=== PATIENT | male | born 1940 | race Caucasian/White ===

== ENCOUNTER 2018-07-02 03:04 | Inpatient (IN) | payer MEDICARE, OTHER ==
[2018-07-02] MEDS ORDERED: NITROGLYCERIN 50 MG/D5W (PMX) 250 ML (03:09)
[2018-07-02] MEDS ORDERED: FUROSEMIDE 40 MG INJ (03:15)
[2018-07-02] MEDS: FUROSEMIDE 40 MG INJ IV (03:44)
[2018-07-02] MEDS: NITROGLYCERIN 50 MG/D5W (PMX) 250 ML IV (03:44)
[2018-07-02 03:49] LABS: ADD MAN DIFF? NO
[2018-07-02 04:01] LABS: ALANINE AMINOTRANSFERASE 7 IU/L (13-69); ALBUMIN 4.4 g/dl (3.3-4.9); ALKALINE PHOSPHATASE 91 IU/L (42-121); ANION GAP 21 (5-13); ASPARTATE AMINO TRANSFERASE 35 IU/L (15-46); BILIRUBIN,INDIRECT 0.4 mg/dl (0-1.1); BILIRUBIN,TOTAL 0.4 mg/dl (0.2-1.3); BLOOD UREA NITROGEN 56 mg/dl (7-20); CALCIUM 9.5 mg/dl (8.4-10.2); CARBON DIOXIDE 16 mmol/L (21-31); CHLORIDE 105 mmol/L (97-110); CREATININE 6.25 mg/dl (0.61-1.24); LIPASE 174 U/L (23-300); POTASSIUM 4.8 mmol/L (3.5-5.1); SODIUM 142 mmol/L (135-144); TOTAL PROTEIN 8.4 g/dl (6.1-8.1)
[2018-07-02 04:11] LABS: WHITE BLOOD COUNT 21.6 10^3/ul (4.8-10.8)
[2018-07-02 04:11] LABS: ABNORMAL IP MESSAGE 1; BASOPHIL # 0.1 10^3/ul (0.0-0.1); BASOPHILS % 0.6 % (0.0-2.0); EOSINOPHILS # 0.8 10^3/ul (0.0-0.5); EOSINOPHILS % 3.9 % (0.0-7.0); HEMATOCRIT 40.4 % (42.0-52.0); HEMOGLOBIN 12.3 g/dl (14.0-18.0); LYMPHOCYTES # 7.6 10^3/ul (0.8-2.9); LYMPHOCYTES % 35.3 % (15.0-51.0); MEAN CORPUSCULAR HEMOGLOBIN 29.4 pg (29.0-33.0); MEAN CORPUSCULAR HGB CONC 30.4 g/dl (32.0-37.0); MEAN CORPUSCULAR VOLUME 96.4 fl (82.0-101.0); MEAN PLATELET VOLUME 10.6 fl (7.4-10.4); MONOCYTE # 0.9 10^3/ul (0.3-0.9); NEUTROPHIL # 11.9 10^3/ul (1.6-7.5); NEUTROPHILS % 55.4 % (39.0-77.0); PLATELET COUNT 456 10^3/UL (140-415); POSITIVE DIFF @See below; RED BLOOD COUNT 4.19 10^6/ul (4.70-6.10); RED CELL DISTRIBUTION WIDTH 14.3 % (11.5-14.5)
[2018-07-02 04:13] LABS: B-TYPE NATRIURETIC PEPTIDE 23200 PG/ML (0-450)
[2018-07-02 04:15] LABS: GLUCOSE 419 mg/dl (70-220)
[2018-07-02 04:21] LABS: TROPONIN-I 0.201 ng/ml (0.000-0.120)
[2018-07-02 04:36] LABS: Allen Test ACCEPTAB; Arterial Base Excess -6.4 mmol/L (-3.0-3); Arterial Blood Gas Oxygen Sat 99.3 mmHG (95.0-100.0); Arterial COHb 0 % (0.0-3.0); Arterial Fraction of Oxyhgb 98.9 % (93.0-99.0); Arterial HCO3 18.7 mmol/L (22.0-26.0); Arterial MetHb 0.4 % (0.0-1.5); Arterial pCO2 36.1 mmhg (35-45); Blood Gas IEPAP 15/5; MODE MASK - BIPAP; Site Right Radial
[2018-07-02 04:45] LABS: INR 0.96; PROTIME 12.9 Sec (11.9-14.9)
[2018-07-02 04:46] LABS: PARTIAL THROMBOPLASTIN TIME 24.3 Sec (23.0-35.0)
[2018-07-02] MEDS ORDERED: DEXTROSE 50% 50 ML SYRINGE IV ×2 (05:00)
[2018-07-02] MEDS ORDERED: LEVALBUTEROL (NEB) 1.25 MG/0.5 ML AMP HHN (05:00)
[2018-07-02] MEDS ORDERED: NITROGLYCERIN (SL) 0.4 MG TAB SL (05:00)
[2018-07-02] MEDS ORDERED: IPRATROPIUM (HFA) 12.9 GM INHALER INH (05:00)
[2018-07-02 05:45] LABS: BASOPHIL #M 0.2 10^3/ul (0.0-0.0); BASOPHILS % (M) 1 % (0-2); EOSINOPHILS % (M) 3 % (0-7); LYMPHOCYTES #M 4.9 10^3/ul (0.8-2.9); LYMPHOCYTES % (M) 23 % (15-51); MONOCYTE #M 0.8 10^3/ul (0.3-0.9); MONOCYTES % (M) 4 % (0-11); PLATELET ESTIMATE NORMAL; POIKILOCYTOSIS 2+ (0-0); POLYCHROMASIA 1+ (0-0); SEGMENTED NEUTROPHILS (M) % 69 % (39-77); SMUDGE%M 4 % (0-0)
[2018-07-02] MEDS: NA BICARBONATE 8.4% 50 ML SYG IV (05:59)
[2018-07-02] MEDS ORDERED: PANTOPRAZOLE 40 MG INJ IV (06:00)
[2018-07-02] MEDS: INSULIN HUMAN REGULAR 100 UNIT in SOD CHLORIDE 0.9% 99 ML IV (06:01)
[2018-07-02 06:07] LABS: CREATINE KINASE 60 IU/L (23-200)
[2018-07-02 06:19] LABS: CK INDEX 5.7
[2018-07-02 06:31] LABS: CK-MB 3.43 ng/ml (0.0-2.4); TROPONIN-I 0.507 ng/ml (0.000-0.120)
[2018-07-02] MEDS: ACCU-CHEK XX ×11 (07:30→23:35)
[2018-07-02 08:31] LABS: ADD MAN DIFF? NO
[2018-07-02 08:34] LABS: BASOPHILS % 0.2 % (0.0-2.0); EOSINOPHILS % 0.2 % (0.0-7.0); HEMATOCRIT 37.3 % (42.0-52.0); HEMOGLOBIN 11.8 g/dl (14.0-18.0); LYMPHOCYTES # 1.2 10^3/ul (0.8-2.9); MEAN CORPUSCULAR HEMOGLOBIN 29.3 pg (29.0-33.0); MEAN CORPUSCULAR HGB CONC 31.6 g/dl (32.0-37.0); MEAN CORPUSCULAR VOLUME 92.6 fl (82.0-101.0); MEAN PLATELET VOLUME 10.3 fl (7.4-10.4); MONOCYTE # 0.9 10^3/ul (0.3-0.9); MONOCYTES % 5.5 % (0.0-11.0); NEUTROPHIL # 14.2 10^3/ul (1.6-7.5); NEUTROPHILS % 86.4 % (39.0-77.0); PLATELET COUNT 280 10^3/UL (140-415); RED BLOOD COUNT 4.03 10^6/ul (4.70-6.10); RED CELL DISTRIBUTION WIDTH 13.9 % (11.5-14.5)
[2018-07-02 08:34] LABS: WHITE BLOOD COUNT 16.5 10^3/ul (4.8-10.8)
[2018-07-02 08:51] LABS: INR 0.94; PROTIME 12.7 Sec (11.9-14.9)
[2018-07-02 08:52] LABS: ALANINE AMINOTRANSFERASE 10 IU/L (13-69); ALBUMIN 4.3 g/dl (3.3-4.9); ALBUMIN/GLOBULIN RATIO 1.26; ALKALINE PHOSPHATASE 85 IU/L (42-121); ANION GAP 16 (5-13); ASPARTATE AMINO TRANSFERASE 28 IU/L (15-46); BILIRUBIN,INDIRECT 0.4 mg/dl (0-1.1); BILIRUBIN,TOTAL 0.4 mg/dl (0.2-1.3); BLOOD UREA NITROGEN 61 mg/dl (7-20); CALCIUM 9.8 mg/dl (8.4-10.2); CARBON DIOXIDE 26 mmol/L (21-31); CHLORIDE 101 mmol/L (97-110); CREATININE 6.87 mg/dl (0.61-1.24); GLUCOSE 277 mg/dl (70-220); POTASSIUM 4.4 mmol/L (3.5-5.1); SODIUM 143 mmol/L (135-144); TOTAL PROTEIN 7.7 g/dl (6.1-8.1)
[2018-07-02 08:53] LABS: PARTIAL THROMBOPLASTIN TIME 28.5 Sec (23.0-35.0)
[2018-07-02] MEDS: FAMOTIDINE 20 MG INJ IV (11:36)
[2018-07-02 11:38] LABS: CREATINE KINASE 95 IU/L (23-200)
[2018-07-02 11:43] LABS: LACTIC ACID 3.6 mmol/L (0.5-2.0)
[2018-07-02] MEDS: HEPARIN 1000 UNITS/ML 10 ML INJ IV (11:46)
[2018-07-02 11:49] LABS: CK INDEX 7.9
[2018-07-02] MEDS: HEPARIN 25000 UNITS/250 ML 250 ML IV (11:57)
[2018-07-02 12:59] LABS: ALANINE AMINOTRANSFERASE 18 IU/L (13-69); ALBUMIN/GLOBULIN RATIO 1.08; ALKALINE PHOSPHATASE 89 IU/L (42-121); ANION GAP 13 (5-13); ASPARTATE AMINO TRANSFERASE 29 IU/L (15-46); BILIRUBIN,INDIRECT 0.4 mg/dl (0-1.1); BILIRUBIN,TOTAL 0.4 mg/dl (0.2-1.3); BLOOD UREA NITROGEN 62 mg/dl (7-20); CALCIUM 9.9 mg/dl (8.4-10.2); CARBON DIOXIDE 27 mmol/L (21-31); CHLORIDE 103 mmol/L (97-110); CREATININE 7.11 mg/dl (0.61-1.24); GLUCOSE 138 mg/dl (70-220); POTASSIUM 4.5 mmol/L (3.5-5.1); SODIUM 143 mmol/L (135-144); TOTAL PROTEIN 7.7 g/dl (6.1-8.1)
[2018-07-02 13:13] LABS: HAAIG REFLEX REFLEX FILED
[2018-07-02 13:35] LABS: PROCALCITONIN 4.46 ng/mL (0.00-0.10)
[2018-07-02 14:06] LABS: HEPATITIS B SURFACE ANTIGEN NEGATIVE (NEGATIVE)
[2018-07-02 14:24] LABS: HEPATITIS B CORE ANTIBODY NEGATIVE (NEGATIVE)
[2018-07-02 15:38] LABS: HEPATITIS C VIRAL ANTIBODY NEGATIVE (NEGATIVE)
[2018-07-02] MEDS: morphine 2 MG INJ IV ×2 (17:05→21:06)
[2018-07-02 17:18] LABS: CREATINE KINASE 102 IU/L (23-200)
[2018-07-02 17:21] LABS: ALANINE AMINOTRANSFERASE 10 IU/L (13-69); ALBUMIN 4.1 g/dl (3.3-4.9); ALBUMIN/GLOBULIN RATIO 1.24; ALKALINE PHOSPHATASE 87 IU/L (42-121); ANION GAP 13 (5-13); ASPARTATE AMINO TRANSFERASE 32 IU/L (15-46); BILIRUBIN,INDIRECT 0.5 mg/dl (0-1.1); BILIRUBIN,TOTAL 0.5 mg/dl (0.2-1.3); BLOOD UREA NITROGEN 63 mg/dl (7-20); CALCIUM 9.7 mg/dl (8.4-10.2); CARBON DIOXIDE 27 mmol/L (21-31); CHLORIDE 102 mmol/L (97-110); CREATININE 7.21 mg/dl (0.61-1.24); GLUCOSE 136 mg/dl (70-220); POTASSIUM 4.2 mmol/L (3.5-5.1); SODIUM 142 mmol/L (135-144); TOTAL PROTEIN 7.4 g/dl (6.1-8.1)
[2018-07-02 17:33] LABS: CK INDEX 6.4; CK-MB 6.52 ng/ml (0.0-2.4)
[2018-07-02 18:54] LABS: PARTIAL THROMBOPLASTIN TIME 61.4 Sec (23.0-35.0)
[2018-07-02] MEDS: TAMSULOSIN (SR) 0.4 MG CAP PO (22:14)
[2018-07-02] MEDS: ASPIRIN (EC) 81 MG TAB PO (22:15)
[2018-07-02] MEDS: CLOPIDOGREL 75 MG TAB PO (22:17)
[2018-07-03] MEDS: ACCU-CHEK XX ×24 (00:27→23:00)
[2018-07-03] MEDS ORDERED: ZOLPIDEM 5 MG TAB (01:10)
[2018-07-03] MEDS: ZOLPIDEM 5 MG TAB PO ×2 (01:12→03:58)
[2018-07-03 01:29] LABS: PARTIAL THROMBOPLASTIN TIME 58.3 Sec (23.0-35.0)
[2018-07-03 05:24] LABS: ADD MAN DIFF? NO
[2018-07-03 05:27] LABS: BASOPHILS % 0.3 % (0.0-2.0); EOSINOPHILS # 0.1 10^3/ul (0.0-0.5); EOSINOPHILS % 1.1 % (0.0-7.0); HEMATOCRIT 35.4 % (42.0-52.0); HEMOGLOBIN 11.4 g/dl (14.0-18.0); LYMPHOCYTES # 1.3 10^3/ul (0.8-2.9); LYMPHOCYTES % 11.2 % (15.0-51.0); MEAN CORPUSCULAR HEMOGLOBIN 29.2 pg (29.0-33.0); MEAN CORPUSCULAR HGB CONC 32.2 g/dl (32.0-37.0); MEAN CORPUSCULAR VOLUME 90.5 fl (82.0-101.0); MEAN PLATELET VOLUME 10.2 fl (7.4-10.4); MONOCYTE # 0.9 10^3/ul (0.3-0.9); MONOCYTES % 7.4 % (0.0-11.0); NEUTROPHIL # 9.5 10^3/ul (1.6-7.5); NEUTROPHILS % 79.7 % (39.0-77.0); PLATELET COUNT 292 10^3/UL (140-415); RED BLOOD COUNT 3.91 10^6/ul (4.70-6.10); RED CELL DISTRIBUTION WIDTH 14.3 % (11.5-14.5)
[2018-07-03 05:27] LABS: WHITE BLOOD COUNT 11.9 10^3/ul (4.8-10.8)
[2018-07-03 05:57] LABS: CREATINE KINASE 175 IU/L (23-200)
[2018-07-03 06:06] LABS: ALANINE AMINOTRANSFERASE 20 IU/L (13-69); ALBUMIN/GLOBULIN RATIO 1.29; ALKALINE PHOSPHATASE 85 IU/L (42-121); ANION GAP 12 (5-13); ASPARTATE AMINO TRANSFERASE 46 IU/L (15-46); BILIRUBIN,INDIRECT 0.5 mg/dl (0-1.1); BILIRUBIN,TOTAL 0.5 mg/dl (0.2-1.3); BLOOD UREA NITROGEN 39 mg/dl (7-20); CALCIUM 9.7 mg/dl (8.4-10.2); CARBON DIOXIDE 30 mmol/L (21-31); CHLORIDE 98 mmol/L (97-110); CHOL/HDL RATIO 2.8 RATIO; CHOLESTEROL 177 mg/dl (100-200); CK INDEX 8.4; CREATININE 5.12 mg/dl (0.61-1.24); GLUCOSE 121 mg/dl (70-220); HDL CHOLESTEROL 63 mg/dl (31-75); LDL CHOLESTEROL,CALCULATED 95 mg/dl; MAGNESIUM 2.1 mg/dl (1.7-2.5); POTASSIUM 4.3 mmol/L (3.5-5.1); SODIUM 140 mmol/L (135-144); TOTAL PROTEIN 7.1 g/dl (6.1-8.1); TRIGLYCERIDES 95 mg/dl (0-149)
[2018-07-03 06:07] LABS: PARTIAL THROMBOPLASTIN TIME 44.7 Sec (23.0-35.0)
[2018-07-03 06:08] LABS: INR 0.96; PROTIME 12.9 Sec (11.9-14.9)
[2018-07-03 06:20] LABS: FREE T4 (FREE THYROXINE) 1.66 ng/dl (0.78-2.44)
[2018-07-03] MEDS: HEPARIN 1000 UNITS/ML 10 ML INJ IV (06:25)
[2018-07-03 07:41] LABS: AADO2 Arterial 89.1 mmHg (7.0-24.0); Arterial Base Excess 5.1 mmol/L (-3.0-3); Arterial Blood Gas Oxygen Sat 96.4 mmHG (95.0-100.0); Arterial COHb 0.3 % (0.0-3.0); Arterial HCO3 27.9 mmol/L (22.0-26.0); Arterial MetHb 0.1 % (0.0-1.5); Arterial pCO2 34.7 mmhg (35-45); MODE NASAL CANNULA; Site Right Brachial
[2018-07-03] MEDS: MAGNESIUM OXIDE 400 MG TAB PO (09:04)
[2018-07-03] MEDS: FAMOTIDINE 20 MG INJ IV (09:04)
[2018-07-03] MEDS: ASPIRIN (EC) 81 MG TAB PO (09:04)
[2018-07-03] MEDS: CALCITRIOL 0.25 MCG CAP PO (09:04)
[2018-07-03 10:35] LABS: ADD UMIC YES; UR ASCORBIC ACID NEGATIVE (NEGATIVE); UR BILIRUBIN (Dip) NEGATIVE (NEGATIVE); UR BLOOD (Dip) 3+ mg/dL (NEGATIVE); UR CLARITY CLOUDY (CLEAR); UR COLOR YELLOW (YELLOW); UR GLUCOSE (Dip) NEGATIVE (NEGATIVE); UR KETONES (Dip) TRACE mg/dL (NEGATIVE); UR LEUKOCYTE ESTERASE (Dip) TRACE Leu/ul (NEGATIVE); UR NITRITE (Dip) NEGATIVE (NEGATIVE); UR RBC 173 /HPF (0-5); UR SPECIFIC GRAVITY (Dip) 1.014 (1.003-1.030); UR TOTAL PROTEIN (Dip) 3+ mg/dl (NEGATIVE); UR UROBILINOGEN (Dip) NEGATIVE (NEGATIVE); UR WBC 11 /HPF (0-5)
[2018-07-03] MEDS: ACETAMINOPHEN 650MG/20.3ML CUP PO ×2 (10:41→20:00)
[2018-07-03] MEDS ORDERED: FENTAnyl 50 MCG/ML VIAL (15:22)
[2018-07-03] MEDS ORDERED: MIDAZOLAM 1 MG/ML 2 ML INJ (15:22)
[2018-07-03] MEDS ORDERED: BIVALIRUDIN 250MG /NS 50 ML 50 ML IVPB (15:46)
[2018-07-03] MEDS ORDERED: IODIXANOL LOCM 100 ML BTL (15:46)
[2018-07-03] MEDS ORDERED: VERAPAMIL 5 MG INJ (15:46)
[2018-07-03] MEDS ORDERED: IOHEXOL 350MG/ML 50 ML BTL (15:46)
[2018-07-03] MEDS ORDERED: CLOPIDOGREL 300 MG TAB (16:19)
[2018-07-03] MEDS ORDERED: NITROGLYCERIN (IC) 100 MCG/ML INJ (16:19)
[2018-07-03] MEDS: SOD CHLORIDE 0.9% 1,000 ML IV (18:00)
[2018-07-03] MEDS: morphine 2 MG INJ IV (18:02)
[2018-07-03] MEDS: TAMSULOSIN (SR) 0.4 MG CAP PO (21:06)
[2018-07-04] MEDS: ACCU-CHEK XX ×6 (01:00→04:40)
[2018-07-04] MEDS: INSULIN GLARGINE [LANTus] (100 UNITS/ML) SYG SC (03:58)
[2018-07-04] MEDS ORDERED: GLUCOSE GEL 15 GRAM TUBE PO ×2 (05:00)
[2018-07-04] MEDS ORDERED: GLUCAGON 1 MG INJ IM (05:00)
[2018-07-04] MEDS ORDERED: DEXTROSE 50% 50 ML SYRINGE IV ×2 (05:00)
[2018-07-04] MEDS ORDERED: GLUCOSE GEL 15 GRAM TUBE BUCCAL (05:00)
[2018-07-04 05:15] LABS: ADD MAN DIFF? NO
[2018-07-04 05:21] LABS: WHITE BLOOD COUNT 15.1 10^3/ul (4.8-10.8)
[2018-07-04 05:21] LABS: BASOPHIL # 0.1 10^3/ul (0.0-0.1); BASOPHILS % 0.4 % (0.0-2.0); EOSINOPHILS # 0.1 10^3/ul (0.0-0.5); EOSINOPHILS % 0.4 % (0.0-7.0); HEMATOCRIT 33.4 % (42.0-52.0); HEMOGLOBIN 10.5 g/dl (14.0-18.0); LYMPHOCYTES # 1.1 10^3/ul (0.8-2.9); LYMPHOCYTES % 7.4 % (15.0-51.0); MEAN CORPUSCULAR HEMOGLOBIN 29.2 pg (29.0-33.0); MEAN CORPUSCULAR HGB CONC 31.4 g/dl (32.0-37.0); MEAN CORPUSCULAR VOLUME 92.8 fl (82.0-101.0); MEAN PLATELET VOLUME 10.8 fl (7.4-10.4); MONOCYTE # 1.4 10^3/ul (0.3-0.9); MONOCYTES % 9.4 % (0.0-11.0); NEUTROPHIL # 12.4 10^3/ul (1.6-7.5); NEUTROPHILS % 81.9 % (39.0-77.0); PLATELET COUNT 258 10^3/UL (140-415); RED CELL DISTRIBUTION WIDTH 14.3 % (11.5-14.5)
[2018-07-04] MEDS: ACETAMINOPHEN 650MG/20.3ML CUP PO (05:46)
[2018-07-04 06:07] LABS: ANION GAP 16 (5-13); BLOOD UREA NITROGEN 55 mg/dl (7-20); CALCIUM 9.6 mg/dl (8.4-10.2); CARBON DIOXIDE 25 mmol/L (21-31); CHLORIDE 98 mmol/L (97-110); CREATININE 6.82 mg/dl (0.61-1.24); GLUCOSE 147 mg/dl (70-220); MAGNESIUM 2.2 mg/dl (1.7-2.5); PHOSPHORUS 8.9 mg/dl (2.5-4.9); POTASSIUM 4.8 mmol/L (3.5-5.1); SODIUM 139 mmol/L (135-144)
[2018-07-04] MEDS: INSULIN ASPART [NOVOLOG] 3 ML PEN SC ×7 (08:11→20:19)
[2018-07-04] MEDS: ASPIRIN (EC) 81 MG TAB PO (08:17)
[2018-07-04] MEDS: CLOPIDOGREL 75 MG TAB PO (08:17)
[2018-07-04] MEDS: MAGNESIUM OXIDE 400 MG TAB PO (08:17)
[2018-07-04] MEDS: CALCITRIOL 0.25 MCG CAP PO (08:18)
[2018-07-04] MEDS: MULTIVIT/CA CARB/B CMPLX/FA TAB PO (08:18)
[2018-07-04] MEDS: FAMOTIDINE 20 MG INJ IV (08:24)
[2018-07-04] MEDS: CEFEPIME 1GM/50 ML (PMX) 50 ML IVPB (10:38)
[2018-07-04] MEDS: SEVELAMER CARBONATE 800 MG TABLET PO ×3 (11:51→17:09)
[2018-07-04] MEDS: HYDROCODONE/APAP (5/325) TAB PO ×2 (12:19→16:41)
[2018-07-04] MEDS: DOCUSATE SODIUM 100 MG CAP PO (20:24)
[2018-07-04] MEDS: TAMSULOSIN (SR) 0.4 MG CAP PO (20:24)
[2018-07-05] MEDS: morphine 2 MG INJ IV (03:04)
[2018-07-05 05:50] LABS: ADD MAN DIFF? NO
[2018-07-05 05:53] LABS: WHITE BLOOD COUNT 13.5 10^3/ul (4.8-10.8)
[2018-07-05 05:53] LABS: BASOPHIL # 0.1 10^3/ul (0.0-0.1); BASOPHILS % 0.4 % (0.0-2.0); EOSINOPHILS % 0.2 % (0.0-7.0); HEMATOCRIT 32.2 % (42.0-52.0); HEMOGLOBIN 10.4 g/dl (14.0-18.0); LYMPHOCYTES # 1.1 10^3/ul (0.8-2.9); LYMPHOCYTES % 8.4 % (15.0-51.0); MEAN CORPUSCULAR HEMOGLOBIN 29.5 pg (29.0-33.0); MEAN CORPUSCULAR HGB CONC 32.3 g/dl (32.0-37.0); MEAN CORPUSCULAR VOLUME 91.2 fl (82.0-101.0); MEAN PLATELET VOLUME 10.5 fl (7.4-10.4); MONOCYTES % 7.7 % (0.0-11.0); NEUTROPHIL # 11.2 10^3/ul (1.6-7.5); NEUTROPHILS % 82.9 % (39.0-77.0); PLATELET COUNT 239 10^3/UL (140-415); RED BLOOD COUNT 3.53 10^6/ul (4.70-6.10); RED CELL DISTRIBUTION WIDTH 14.4 % (11.5-14.5)
[2018-07-05 06:13] LABS: CREATINE KINASE 53 IU/L (23-200)
[2018-07-05 06:17] LABS: ALANINE AMINOTRANSFERASE 9 IU/L (13-69); ALBUMIN 3.9 g/dl (3.3-4.9); ALBUMIN/GLOBULIN RATIO 1.08; ALKALINE PHOSPHATASE 94 IU/L (42-121); ANION GAP 13 (5-13); ASPARTATE AMINO TRANSFERASE 24 IU/L (15-46); BILIRUBIN,INDIRECT 0.4 mg/dl (0-1.1); BILIRUBIN,TOTAL 0.4 mg/dl (0.2-1.3); BLOOD UREA NITROGEN 37 mg/dl (7-20); CALCIUM 9.2 mg/dl (8.4-10.2); CARBON DIOXIDE 28 mmol/L (21-31); CHLORIDE 98 mmol/L (97-110); CREATININE 5.59 mg/dl (0.61-1.24); GLUCOSE 186 mg/dl (70-220); MAGNESIUM 2.2 mg/dl (1.7-2.5); POTASSIUM 4.4 mmol/L (3.5-5.1); SODIUM 139 mmol/L (135-144); TOTAL PROTEIN 7.5 g/dl (6.1-8.1)
[2018-07-05 06:25] LABS: CK INDEX 3.5; CK-MB 1.84 ng/ml (0.0-2.4)
[2018-07-05] MEDS: INSULIN ASPART [NOVOLOG] 3 ML PEN SC ×7 (07:56→20:51)
[2018-07-05] MEDS: CALCITRIOL 0.25 MCG CAP PO (08:36)
[2018-07-05] MEDS: ASPIRIN (EC) 81 MG TAB PO (08:36)
[2018-07-05] MEDS: MULTIVIT/CA CARB/B CMPLX/FA TAB PO (08:36)
[2018-07-05] MEDS: MAGNESIUM OXIDE 400 MG TAB PO (08:36)
[2018-07-05] MEDS: FAMOTIDINE 20 MG TAB PO (08:36)
[2018-07-05] MEDS: SEVELAMER CARBONATE 800 MG TABLET PO ×3 (08:36→17:25)
[2018-07-05] MEDS: CLOPIDOGREL 75 MG TAB PO (08:36)
[2018-07-05] MEDS: LOSARTAN 25 MG TAB PO (08:37)
[2018-07-05] MEDS: INSULIN GLARGINE [LANTus] (100 UNITS/ML) SYG SC (08:38)
[2018-07-05] MEDS: CEFEPIME 1GM/50 ML (PMX) 50 ML IVPB (08:38)
[2018-07-05] MEDS: NYSTATIN 30 GM POWDER BTL TOP ×2 (15:33→20:51)
[2018-07-05] MEDS: TAMSULOSIN (SR) 0.4 MG CAP PO (20:45)
[2018-07-05] MEDS: ZOLPIDEM 5 MG TAB PO (21:01)
[2018-07-06 06:53] LABS: ADD MAN DIFF? NO
[2018-07-06 06:55] LABS: BASOPHILS % 0.3 % (0.0-2.0); EOSINOPHILS # 0.1 10^3/ul (0.0-0.5); EOSINOPHILS % 1.2 % (0.0-7.0); HEMATOCRIT 30.7 % (42.0-52.0); HEMOGLOBIN 9.8 g/dl (14.0-18.0); LYMPHOCYTES # 1.2 10^3/ul (0.8-2.9); LYMPHOCYTES % 10.4 % (15.0-51.0); MEAN CORPUSCULAR HGB CONC 31.9 g/dl (32.0-37.0); MEAN CORPUSCULAR VOLUME 90.8 fl (82.0-101.0); MEAN PLATELET VOLUME 10.6 fl (7.4-10.4); MONOCYTES % 8.6 % (0.0-11.0); NEUTROPHIL # 9.2 10^3/ul (1.6-7.5); NEUTROPHILS % 79.2 % (39.0-77.0); PLATELET COUNT 263 10^3/UL (140-415); RED BLOOD COUNT 3.38 10^6/ul (4.70-6.10)
[2018-07-06 06:55] LABS: WHITE BLOOD COUNT 11.6 10^3/ul (4.8-10.8)
[2018-07-06 07:29] LABS: ANION GAP 14 (5-13); BLOOD UREA NITROGEN 62 mg/dl (7-20); CALCIUM 9.2 mg/dl (8.4-10.2); CARBON DIOXIDE 25 mmol/L (21-31); CHLORIDE 96 mmol/L (97-110); CREATININE 7.17 mg/dl (0.61-1.24); GLUCOSE 184 mg/dl (70-220); MAGNESIUM 2.5 mg/dl (1.7-2.5); POTASSIUM 4.3 mmol/L (3.5-5.1); SODIUM 135 mmol/L (135-144)
[2018-07-06] MEDS: INSULIN ASPART [NOVOLOG] 3 ML PEN SC ×7 (07:55→21:00)
[2018-07-06] MEDS: CLOPIDOGREL 75 MG TAB PO (08:39)
[2018-07-06] MEDS: SEVELAMER CARBONATE 800 MG TABLET PO ×3 (08:39→17:39)
[2018-07-06] MEDS: FAMOTIDINE 20 MG TAB PO (08:39)
[2018-07-06] MEDS: MAGNESIUM OXIDE 400 MG TAB PO (08:39)
[2018-07-06] MEDS: MULTIVIT/CA CARB/B CMPLX/FA TAB PO (08:39)
[2018-07-06] MEDS: ASPIRIN (EC) 81 MG TAB PO (08:39)
[2018-07-06] MEDS: CALCITRIOL 0.25 MCG CAP PO (08:39)
[2018-07-06] MEDS: NYSTATIN 30 GM POWDER BTL TOP ×2 (08:40→22:45)
[2018-07-06] MEDS: LOSARTAN 25 MG TAB PO ×2 (08:48→12:10)
[2018-07-06] MEDS: INSULIN GLARGINE [LANTus] (100 UNITS/ML) SYG SC (08:51)
[2018-07-06] MEDS: CEFEPIME 1GM/50 ML (PMX) 50 ML IVPB (10:19)
[2018-07-06] MEDS: HYDROCODONE/APAP (5/325) TAB PO (10:20)
[2018-07-06] MEDS: TAMSULOSIN (SR) 0.4 MG CAP PO (20:46)
[2018-07-06] MEDS: ZOLPIDEM 5 MG TAB PO (22:46)
[2018-07-07] MEDS: CEFEPIME 1GM/50 ML (PMX) 50 ML IVPB (09:32)
[2018-07-07] MEDS: LOSARTAN 25 MG TAB PO (09:33)
[2018-07-07] MEDS: MAGNESIUM OXIDE 400 MG TAB PO (09:33)
[2018-07-07] MEDS: CALCITRIOL 0.25 MCG CAP PO (09:33)
[2018-07-07] MEDS: MULTIVIT/CA CARB/B CMPLX/FA TAB PO (09:33)
[2018-07-07] MEDS: SEVELAMER CARBONATE 800 MG TABLET PO ×3 (09:33→19:00)
[2018-07-07] MEDS: CLOPIDOGREL 75 MG TAB PO (09:33)
[2018-07-07] MEDS: ASPIRIN (EC) 81 MG TAB PO (09:33)
[2018-07-07] MEDS: FAMOTIDINE 20 MG TAB PO (09:33)
[2018-07-07] MEDS: INSULIN ASPART [NOVOLOG] 3 ML PEN SC ×7 (09:47→21:00)
[2018-07-07 10:12] LABS: ADD MAN DIFF? NO
[2018-07-07 10:15] LABS: BASOPHIL # 0.1 10^3/ul (0.0-0.1); BASOPHILS % 0.5 % (0.0-2.0); EOSINOPHILS # 0.3 10^3/ul (0.0-0.5); EOSINOPHILS % 2.9 % (0.0-7.0); HEMATOCRIT 33.9 % (42.0-52.0); HEMOGLOBIN 10.7 g/dl (14.0-18.0); LYMPHOCYTES # 0.9 10^3/ul (0.8-2.9); LYMPHOCYTES % 9.6 % (15.0-51.0); MEAN CORPUSCULAR HEMOGLOBIN 29.2 pg (29.0-33.0); MEAN CORPUSCULAR HGB CONC 31.6 g/dl (32.0-37.0); MEAN CORPUSCULAR VOLUME 92.6 fl (82.0-101.0); MEAN PLATELET VOLUME 10.8 fl (7.4-10.4); MONOCYTE # 0.9 10^3/ul (0.3-0.9); MONOCYTES % 9.6 % (0.0-11.0); NEUTROPHIL # 7.4 10^3/ul (1.6-7.5); NEUTROPHILS % 77.1 % (39.0-77.0); PLATELET COUNT 276 10^3/UL (140-415); RED BLOOD COUNT 3.66 10^6/ul (4.70-6.10); RED CELL DISTRIBUTION WIDTH 13.8 % (11.5-14.5)
[2018-07-07 10:15] LABS: WHITE BLOOD COUNT 9.6 10^3/ul (4.8-10.8)
[2018-07-07] MEDS: NYSTATIN 30 GM POWDER BTL TOP ×2 (10:22→21:15)
[2018-07-07] MEDS: INSULIN GLARGINE [LANTus] (100 UNITS/ML) SYG SC (10:29)
[2018-07-07 10:39] LABS: ANION GAP 15 (5-13); BLOOD UREA NITROGEN 46 mg/dl (7-20); CALCIUM 9.4 mg/dl (8.4-10.2); CARBON DIOXIDE 23 mmol/L (21-31); CHLORIDE 102 mmol/L (97-110); CREATININE 5.92 mg/dl (0.61-1.24); GLUCOSE 193 mg/dl (70-220); POTASSIUM 4.4 mmol/L (3.5-5.1); SODIUM 140 mmol/L (135-144)
[2018-07-07 13:50] LABS: HEMOGLOBIN A1C 7.9 % (0-5.9)
[2018-07-07] MEDS ORDERED: INSULIN ASPART [NOVOLOG] 3 ML PEN SC (17:55)
[2018-07-07] MEDS: LACTOBACILLUS RHAMNOSUS CAP PO (21:12)
[2018-07-07] MEDS: TAMSULOSIN (SR) 0.4 MG CAP PO (21:12)
[2018-07-07] MEDS: ZOLPIDEM 5 MG TAB PO (21:12)
[2018-07-07] MEDS: ACETAMINOPHEN 650MG/20.3ML CUP PO (21:12)
[2018-07-08 06:26] LABS: ADD MAN DIFF? NO
[2018-07-08 06:31] LABS: WHITE BLOOD COUNT 9.9 10^3/ul (4.8-10.8)
[2018-07-08 06:31] LABS: BASOPHIL # 0.1 10^3/ul (0.0-0.1); BASOPHILS % 0.5 % (0.0-2.0); EOSINOPHILS # 0.4 10^3/ul (0.0-0.5); EOSINOPHILS % 3.5 % (0.0-7.0); HEMATOCRIT 32.5 % (42.0-52.0); HEMOGLOBIN 10.5 g/dl (14.0-18.0); LYMPHOCYTES # 1.2 10^3/ul (0.8-2.9); LYMPHOCYTES % 12.5 % (15.0-51.0); MEAN CORPUSCULAR HEMOGLOBIN 29.4 pg (29.0-33.0); MEAN CORPUSCULAR HGB CONC 32.3 g/dl (32.0-37.0); MEAN PLATELET VOLUME 10.8 fl (7.4-10.4); MONOCYTES % 9.7 % (0.0-11.0); NEUTROPHIL # 7.3 10^3/ul (1.6-7.5); NEUTROPHILS % 73.3 % (39.0-77.0); PLATELET COUNT 280 10^3/UL (140-415); RED BLOOD COUNT 3.57 10^6/ul (4.70-6.10); RED CELL DISTRIBUTION WIDTH 13.7 % (11.5-14.5)
[2018-07-08 07:24] LABS: ANION GAP 16 (5-13); BLOOD UREA NITROGEN 71 mg/dl (7-20); CALCIUM 9.5 mg/dl (8.4-10.2); CARBON DIOXIDE 23 mmol/L (21-31); CHLORIDE 100 mmol/L (97-110); CREATININE 6.75 mg/dl (0.61-1.24); GLUCOSE 183 mg/dl (70-220); POTASSIUM 4.3 mmol/L (3.5-5.1); SODIUM 139 mmol/L (135-144)
[2018-07-08] MEDS: SEVELAMER CARBONATE 800 MG TABLET PO ×3 (07:27→18:16)
[2018-07-08] MEDS: INSULIN GLARGINE [LANTus] (100 UNITS/ML) SYG SC (07:52)
[2018-07-08] MEDS: INSULIN ASPART [NOVOLOG] 3 ML PEN SC ×7 (07:53→21:00)
[2018-07-08] MEDS ORDERED: INSULIN GLARGINE [LANTus] (100 UNITS/ML) SYG SC (08:00)
[2018-07-08] MEDS: MULTIVIT/CA CARB/B CMPLX/FA TAB PO (09:18)
[2018-07-08] MEDS: CEFEPIME 1GM/50 ML (PMX) 50 ML IVPB (09:18)
[2018-07-08] MEDS: ASPIRIN (EC) 81 MG TAB PO (09:18)
[2018-07-08] MEDS: LOSARTAN 25 MG TAB PO (09:18)
[2018-07-08] MEDS: CALCITRIOL 0.25 MCG CAP PO (09:18)
[2018-07-08] MEDS: FAMOTIDINE 20 MG TAB PO (09:18)
[2018-07-08] MEDS: CLOPIDOGREL 75 MG TAB PO (09:19)
[2018-07-08] MEDS: NYSTATIN 30 GM POWDER BTL TOP ×2 (09:19→20:21)
[2018-07-08] MEDS: LACTOBACILLUS RHAMNOSUS CAP PO ×2 (09:19→20:20)
[2018-07-08] MEDS: ATORVASTATIN 40 MG TAB PO ×2 (12:12→20:21)
[2018-07-08] MEDS: TAMSULOSIN (SR) 0.4 MG CAP PO (20:20)
[2018-07-08] MEDS: ACETAMINOPHEN 650MG/20.3ML CUP PO (21:47)
[2018-07-08] MEDS: ZOLPIDEM 5 MG TAB PO (21:56)
[2018-07-09] MEDS: INSULIN ASPART [NOVOLOG] 3 ML PEN SC ×6 (08:15→18:15)
[2018-07-09] MEDS: LACTOBACILLUS RHAMNOSUS CAP PO (08:50)
[2018-07-09] MEDS: MULTIVIT/CA CARB/B CMPLX/FA TAB PO (08:50)
[2018-07-09] MEDS: CALCITRIOL 0.25 MCG CAP PO (08:50)
[2018-07-09] MEDS: CLOPIDOGREL 75 MG TAB PO (08:51)
[2018-07-09] MEDS: FAMOTIDINE 20 MG TAB PO (08:51)
[2018-07-09] MEDS: ASPIRIN (EC) 81 MG TAB PO (08:51)
[2018-07-09] MEDS: LOSARTAN 25 MG TAB PO (08:52)
[2018-07-09] MEDS: SEVELAMER CARBONATE 800 MG TABLET PO ×3 (09:25→18:08)
[2018-07-09] MEDS: CEFEPIME 1GM/50 ML (PMX) 50 ML IVPB (09:26)
[2018-07-09] MEDS: INSULIN GLARGINE [LANTus] (100 UNITS/ML) SYG SC (09:29)
[2018-07-09] MEDS: NYSTATIN 30 GM POWDER BTL TOP (09:31)
[2018-07-09] MEDS ORDERED: morphine 2 MG INJ IV (12:30)
[2018-07-09] MEDS: EPOETIN ALFA-EPBX (ESRD) 4,000 UNIT/ML VIAL SC (18:10)
== END 2018-07-09 19:02 | disposition home health service (06) | DRG 246 ==
LOC: TEL 07-05 08:24 → E/R 03:04 → TEL 07-04 16:55 → ICU 04:04
PROVIDERS: Family Medicine
PROC: 027035Z Dilation of Coronary Artery, One Artery with Two Drug-eluting Intraluminal Devices, Percutaneous Approach (ICD-10-PCS; principal; 2018-07-03 14:55)
PROC: 02C03ZZ Extirpation of Matter from Coronary Artery, One Artery, Percutaneous Approach (ICD-10-PCS; 2018-07-03 14:55)
PROC: 4A023N7 Measurement of Cardiac Sampling and Pressure, Left Heart, Percutaneous Approach (ICD-10-PCS; 2018-07-03 14:55)
PROC: B211YZZ Fluoroscopy of Multiple Coronary Arteries using Other Contrast (ICD-10-PCS; 2018-07-03 14:55)
PROC: B240ZZ3 Ultrasonography of Single Coronary Artery, Intravascular (ICD-10-PCS; 2018-07-03 14:55)
PROC: 5A1D70Z Performance of Urinary Filtration, Intermittent, Less than 6 Hours Per Day (ICD-10-PCS; 2018-07-03 14:55)
PROC: 5A09357 Assistance with Respiratory Ventilation, Less than 24 Consecutive Hours, Continuous Positive Airway Pressure (ICD-10-PCS; 2018-07-03 14:55)
DX: I21.4 Non-ST elevation (NSTEMI) myocardial infarction (principal); I50.23 Acute on chronic systolic (congestive) heart failure; N18.6 End stage renal disease; J96.01 Acute respiratory failure with hypoxia; J18.1 Lobar pneumonia, unspecified organism; E87.2 Acidosis; I13.0 Hypertensive heart and chronic kidney disease with heart failure and stage 1 through stage 4 chronic kidney disease, or unspecified chronic kidney disease; N39.0 Urinary tract infection, site not specified; I82.611 Acute embolism and thrombosis of superficial veins of right upper extremity; E11.65 Type 2 diabetes mellitus with hyperglycemia; E78.5 Hyperlipidemia, unspecified; N40.0 Benign prostatic hyperplasia without lower urinary tract symptoms; D63.1 Anemia in chronic kidney disease; G93.2 Benign intracranial hypertension; J20.9 Acute bronchitis, unspecified; M10.9 Gout, unspecified; I25.10 Atherosclerotic heart disease of native coronary artery without angina pectoris; I73.9 Peripheral vascular disease, unspecified; Z79.4 Long term (current) use of insulin; Z99.2 Dependence on renal dialysis
CPT/HCPCS: 36415; 36600; 70450; 71045; 73030-RT; 73090-RT; 80048; 80053; 80061; 81001; 82550; 82553; 82803; 82962; 83036; 83605; 83690; 83735; 83880; 84100; 84145; 84439; 84443; 84484; 85025; 85610; 85730; 86704; 86709; 86803; 87040-91; 87081; 87086; 87340; 89190; 90935; 92928; 92978; 93005; 93306; 93458; 93971; 94660; 96374; 96375; 97161; 97166; 97167; 99285-25